=== PATIENT | female | born 1955 | race Caucasian/White ===

== ENCOUNTER → 2017-05-03 | Outpatient (CLI) | payer BC ==
[2017-05-03 12:27] LABS: HEMATOCRIT 42.5 % (37-47); HEMOGLOBIN 14.1 g/dL (12.0-16.0); MEAN CELL VOLUME 91.6 fL (80-100); MEAN CORPUSCULAR HEMOGLOBIN 30.4 pg (25-34); MEAN CORPUSCULAR HGB CONC 33.2 g/dl (32-36); MEAN PLATELET VOLUME 10.8 fL (7.4-10.4); PLATELET COUNT 158 K/uL (130-400); RED CELL DISTRIBUTION WIDTH CV 13.2 % (11.5-14.5); WHITE BLOOD COUNT 5.61 K/uL (4.8-10.8)
[2017-05-03 13:09] LABS: ALBUMIN 3.8 gm/dl (3.4-5.0); ALKALINE PHOSPHATASE 104 U/L (45-117); ALT/SGPT 21 U/L (12-78); AST/SGOT 15 U/L (15-37); BLOOD UREA NITROGEN 11 mg/dl (7-18); CALCIUM 9.2 mg/dl (8.5-10.1); CARBON DIOXIDE 27 mmol/L (21-32); CHOLESTEROL 184 mg/dl (0-200); GLUCOSE 97 mg/dl (70-99); LDL CHOLESTEROL CALCULATED 90 mg/dl; POTASSIUM 3.9 mmol/L (3.5-5.1); SODIUM 137 mmol/L (136-145); TOTAL PROTEIN 7.9 gm/dl (6.4-8.2)
[2017-05-03 13:46] LABS: BASO % 0.5 %; BASO ABS # 0.03 K/uL (0-0.2); EOS ABS # 0.11 K/uL (0-0.5); LYMPH ABS # 3.48 K/uL (1.2-3.4); MONO ABS # 0.45 K/uL (0.11-0.59); NEUT % 27.5 %; NEUT ABS # 1.54 K/uL (1.4-6.5)
== END | disposition home or self-care (01) ==
LOC: C.LABBFT 09:20
PROVIDERS: ATTEND Internal Medicine
DX: E78.5 Hyperlipidemia, unspecified (principal)

== ENCOUNTER → 2017-06-12 | Outpatient (CLI) | payer OTHER | END | disposition home or self-care (01) | LOC: C.PAPS 13:06 | PROVIDERS: ATTEND Obstetrics & Gynecology | DX: Z01.419 Encounter for gynecological examination (general) (routine) without abnormal findings (principal) ==

== ENCOUNTER → 2017-08-10 | Outpatient (CLI) | payer OTHER ==
--- NOTE | 2017-08-11 07:22 | MAMMOGRAPHY REPORT ---
BILATERAL DIGITAL SCREENING MAMMOGRAM TOMOSYNTHESIS WITH CAD: 08/10/2017 CLINICAL HISTORY: Routine screening. Patient has no complaints. TECHNIQUE: Breast tomosynthesis in addition to standard 2D mammography was performed. Current study was also evaluated with a Computer Aided Detection (CAD) system. COMPARISON: Comparison is made to exams dated: 03/31/2016 mammogram, 08/05/2014 mammogram, 03/14/2013 mammogram, and 03/08/2012 [facility]. BREAST COMPOSITION: There are scattered areas of fibroglandular density in both breasts. FINDINGS: No suspicious masses, calcifications, or areas of architectural distortion are noted in ei ther breast. There has been no significant interval change compared to prior exams. Benign-appearing lobulated 9 mm mass within the left upper outer quadrant is stable compared to multiple prior exams including the 2012 exam. Scattered benign-appearing right breast calcifications are stable. IMPRESSION: ACR BI-RADS CATEGORY 2: BENIGN There is no mammographic evidence of malignancy. A 1 year screening mammogram is recommended. The pa tient will receive written notification of the results. Approximately 10% of breast cancers are not detected with mammography. A negative mammographic report should not delay biopsy if a clinically suggestive mass is present. Davida Goodman M.D. ah/:08/10/2017 12:21:10 [employer] Testing: Kalie RIVERA)(Stephan)(BD), [facility] letter sent: Normal 1/2 BI-RADS Code: ACR BI-RADS Category 2: Benign
== END | disposition home or self-care (01) ==
LOC: C.MAMM 10:33
PROVIDERS: ATTEND Obstetrics & Gynecology
DX: Z12.31 Encounter for screening mammogram for malignant neoplasm of breast (principal)

== ENCOUNTER 2023-05-31 18:05 | Observation (INO) ==
--- NOTE | 2023-05-31 18:25 | ED Triage Note ---
Date of Service May 31, 2023 Provider in Triage Author: Josue Deleon History of Present Illness This patient was briefly evaluated while in triage. An abbreviated physical exam was performed. This patient is a 67-year-old Female who presents to the ED for evaluation of chest pain that started last week for a short period of time and then returned today. Pain in the center. Radiates down L arm and into L neck. No dyspnea.No hx of mi. Physical Exam GENERAL: 67 year old female. In no acute distress. SKIN: No lesions or rashes. HEART: Regular rate and rhythm. LUNGS: Clear to auscultation. NEURO: Alert and oriented. No deficits. MUSCULOSKELETAL: No deformities to inspection of the extremities. PSYCH: Patient is pleasant and answers all questions appropriately. Initial orders for labs and / or imaging were placed and patient was placed in the waiting area until a bed is available. Please see further documentation for the full ED course.
--- NOTE | 2023-05-31 19:17 | XRay Report ---
SINGLE VIEW CHEST CLINICAL HISTORY: Atypical chest pain. FINDINGS: A PA chest radiograph is obtained. No prior studies are available for comparison at the sandra e of dictation. The cardiomediastinal silhouette is unremarkable. Linear atelectasis is seen in the l eft lower lung. The lungs and pleural spaces are otherwise clear. No pneumothorax is seen. The skelet al structures are osteopenic. The bony thorax is grossly intact. IMPRESSION: No active disease in the chest. ACT 112: Negative or not required by law. Electronically signed by: Ron Hussein M.D. 05/31/2023 7:16 PM
[2023-05-31 19:23] LABS: Basophils # (auto) 0.05 K/uL (0.00-0.20); Eosinophils # (auto) 0.07 K/uL (0.00-0.50); Eosinophils % (auto) 1.3 %; Hematocrit (blood only) 40.4 % (37.0-47.0); Hemoglobin 13.4 g/dl (12.0-16.0); Immature Granulocytes # (auto) 0.01 K/uL (0.01-0.20); Immature Granulocytes % (auto) 0.2 %; Lymphocytes # (auto) 2.35 K/uL (1.20-3.40); Lymphocytes % (auto) 44.8 %; Mean Corpuscular Hemoglobin 29.3 pg (25.0-34.0); Mean Corpuscular Hgb Conc 33.2 g/dL (32.0-36.0); Mean Corpuscular Volume 88.4 fL (80.0-100.0); Mean Platelet Volume 10.8 fL (9.4-12.4); Monocytes # (auto) 0.45 K/uL (0.11-0.59); Monocytes % (auto) 8.6 %; Neutrophils # (auto) 2.32 K/uL (1.40-6.50); Neutrophils % (auto) 44.1 %; Platelet Count 153 K/uL (130-400); RDW Coefficient of Variation 12.9 % (11.5-14.5); RDW Standard Deviation 41.7 fL (36.4-46.3); Red Blood Count 4.57 M/uL (4.20-5.40); White Blood Count 5.25 K/ul (4.8-10.8)
[2023-05-31 19:38] LABS: Albumin Globulin Ratio 1.4 (0.9-2); Albumin Level 4.5 gm/dl (3.4-5.0); Bilirubin,Total 0.5 mg/dl (0.2-1.0); Calcium 10.2 mg/dl (8.6-10.3); Creatinine Clr Calc Pharmacy 68.8 ml/min; Est GFR (African American) 88.4 ml/min; Est GFR (Non-African American) 76.3 ml/min; Globulin 3.3 gm/dl (2.5-4.0); Potassium 3.7 mmol/L (3.5-5.1); Total Protein 7.8 gm/dl (6.0-8.3)
[2023-05-31 19:45] LABS: Troponin I High Sensitivity 3.8 pg/ml (0-14)
[2023-05-31 19:47] LABS: Partial Thromboplastin Ratio 0.8; Partial Thromboplastin Time 23 Seconds (21-31); Prothrombin Time 10.8 Seconds (9.0-12.0)
[2023-05-31 19:54] LABS: Thyroid Stimulating Hormone 2.982 uIu/ml (0.300-4.500)
[2023-05-31] MEDS ORDERED: ASPIRIN CHEW 324 MG PO STA (20:43)
--- NOTE | 2023-05-31 20:47 | Emergency Department Note ---
History of Present Illness General Chief complaint: Cardiac Assessment Stated complaint: CHEST PAIN, LT ARM PAIN, HEADACHE Time Seen by Provider: 05/31/23 20:32 History of Present Illness Maximum Pain Intensity: 4 67-year-old female presents emergency department with a 1 week history of intermittent substernal chest heaviness that radiates to her jaw neck and down her left arm with associated mild nausea and some shortness of breath. Patient states that she has been using Tums and Prilosec. Patient states approximately 6 years ago she had a thallium stress test which was negative and was told that she might have esophagitis. Patient denies any abdominal pain patient states currently intermittent chest heaviness that started earlier today while she was at [employer] volunteering. Patient states has been persistent. Patient did not take any aspirin prior to arrival. There are no other current mitigating or alleviating factors Home Medications Medication Instructions Recorded Confirmed Type multivitamin 1 tab PO DAILY 04/04/19 05/18/23 History cholecalciferol (vitamin D3) PO 09/17/20 05/18/23 History vitamin B complex PO 12/14/20 05/18/23 History conjugated estrogens 0.625 mg/gram 1 applic vaginal .COMPLEX #30 grams 12/08/22 05/18/23 Rx vaginal cream (Premarin) rosuvastatin 5 mg tablet 5 mg PO DAILY 90 days #90 tabs 03/23/23 05/18/23 Rx lqqpjkesk-thxO-jrbnzgm-FOS-bromelain ml PO 05/18/23 05/18/23 History 1,937 mg-188 mg/15 mL oral liquid Allergies Allergy/AdvReac Type Severity Reaction Status Date / Time No Known Drug Allergies Allergy Verified 05/18/23 12:23 Past Med/Surg History Medical History Mitral regurgitation Interstitial cystitis Cystocele Heel spur Iliac crest spur, unspecified hip Nephrolithiasis Hx of migraines Abnormal Pap smear of cervix Zoster Surgical History History of colonoscopy (12/24/19) Dr. Rigoberto Kramer, normal colonoscopy, recheck 10 years H/O colonoscopy 02/04/[address] Antwan Jimenez S/P cholecystectomy S/P appendectomy Family History Father Alzheimer disease Kidney disease Cancer Prostate cancer Mother Coronary heart disease s/p CABG Cardiac disorder Diabetes Gallbladder disease Denies family history of Ovarian cancer Heart disease Myocardial infarction Breast cancer Colorectal cancer Social History Smoking Status: Never smoker Second Hand Exposure: No; Do You Dip or Chew Tobacco: No; Hx Alcohol Use: Yes Alcohol Intake Frequency: Monthly or Less Hx Substance Use: No Preferred Language: Nicaraguan Communication Ability: Effective Visual Impairment: Limited Hearing Ability: Normal Obstetrics Nurse Practitioner Required: No marital status: Current Living Situation: Spouse current occupational status: retired Feels Safe at Home: Yes Childhood Exposure to Second-Hand Smoke: No Diet: regular caffeine: Yes during the past year weight has: remained stable Dental Care, Regularly: Yes Physical Activity Frequency: 5-6 Times per Week Seatbelt Use: always Sunscreen Use: Yes Assistive Devices: Glasses Review of Systems A total of 10 systems reviewed and were otherwise negative Cardiovascular: + chest pain Physical Exam Vital Signs Vital Signs - 24 hr 05/31/23 18:23 05/31/23 20:15 Temperature 36.8 C Temperature Source Temporal Artery Scan Pulse Rate 90 Pulse Rate [Left Finger] 70 Respiratory Rate 20 17 Respiratory Effort / Characteristics Non-Labored Spontaneous Respiratory Depth Normal Blood Pressure 191/120 H Blood Pressure [Left Arm] 159/94 H Blood Pressure Mean 143 Blood Pressure Mean [Left Arm] 115 Pulse Oximetry 96 97 Oxygen Delivery Method Room Air Room Air Sepsis Recent Fever Within 48 Hours No Sepsis New/Unexplained Change in Mental Status N/A Sepsis Action Taken by Nursing No Action Required GENERAL: Patient is awake alert in no acute distress patient is resting comfortably and showing no signs of anxiety EYES: The conjunctivae are clear. The pupils are round and reactive. EARS, NOSE, MOUTH AND THROAT: The nose is without any evidence of any deformity. Mucous membranes are moist. Tongue is midline. NECK: The neck is nontender and supple. RESPIRATORY: Normal respiratory effort is noted there is no evidence of wheezing rhonchi or rales CARDIOVASCULAR: Regular rate and rhythm noted there no murmurs rubs or gallops normal S1 normal S2. GASTROINTESTINAL: The abdomen is soft. Abdomen is nontender. BACK: No midline tenderness or or step-off noted range of motion in flexion extension as well as rotation no signs of muscle spasm noted MUSCULOSKELETAL/EXTREMITIES: There is no evidence of gross deformity full range of motion is noted in the hips and shoulders. SKIN: There is no obvious evidence of any rash. There are no petechiae, pallor or cyanosis noted. NEUROLOGIC: Patient is awake alert and oriented x3 strength is symmetric Course Reevaluation(s) Reevaluation #1: Patient was started on aspirin prior to admission. No current significant chest pain or heaviness Time: 20:58 Consultations Consultation #1: This [facility] pain and possible unstable angina Time: 20:58 Administered Medications Aspirin (Aspirin Chew 324 Mg) 324 mg PO NOW STA Stop: 05/31/23 20:44 Last Admin: 05/31/23 20:50 Dose: 324 mg Documented By: ROMAN Medical Decision Making Medical Records Attestation: I reviewed the patient's medical records. Home Medications Current Medication List: was personally reviewed by me Laboratory Data Attestation: I reviewed the patient's lab results. Labs interpreted by me unremarkable 05/31/23 18:43 05/31/23 18:43 Lab Results 05/31/23 Range/Units 18:43 WBC 5.25 (4.8-10.8) K/ul RBC 4.57 (4.20-5.40) M/uL Hgb 13.4 (12.0-16.0) g/dl Hct 40.4 (37.0-47.0) % MCV 88.4 (80.0-100.0) fL MCH 29.3 (25.0-34.0) pg MCHC 33.2 (32.0-36.0) g/dL RDW Std Deviation 41.7 (36.4-46.3) fL RDW Coeff of Leonardo 12.9 (11.5-14.5) % Plt Count 153 (130-400) K/uL MPV 10.8 (9.4-12.4) fL Immature Gran % (Auto) 0.2 % Neut % (Auto) 44.1 % Lymph % (Auto) 44.8 % Lincoln % (Auto) 8.6 % Eos % (Auto) 1.3 % Baso % (Auto) 1.0 % Neut # (Auto) 2.32 (1.40-6.50) K/uL Lymph # (Auto) 2.35 (1.20-3.40) K/uL Lincoln # (Auto) 0.45 (0.11-0.59) K/uL Eos # (Auto) 0.07 (0.00-0.50) K/uL Baso # (Auto) 0.05 (0.00-0.20) K/uL Immature Gran # (Auto) 0.01 (0.01-0.20) K/uL PT 10.8 (9.0-12.0) Seconds INR 1.0 (0.9-1.1) APTT 23 (21-31) Seconds PTT Ratio 0.8 Sodium 140 (136-145) mmol/L Potassium 3.7 (3.5-5.1) mmol/L Chloride 105 (98-107) mmol/L Carbon Dioxide 27 (21-32) mmol/L Anion Gap 8 (3-11) BUN 12 (6-23) mg/dl Creatinine 0.80 (0.6-1.2) mg/dl Est Cr Clr Drug Dosing 68.8 ml/min Est GFR ( Amer) 88.4 ml/min Est GFR (Non-Af Amer) 76.3 ml/min BUN/Creatinine Ratio 15.0 (10-20) Glucose 94 (70-99(Fasting)) mg/dl Calcium 10.2 (8.6-10.3) mg/dl Magnesium 2.0 (1.7-2.4) mg/dl Total Bilirubin 0.5 (0.2-1.0) mg/dl AST 18 (13-39) U/L ALT 12 (7-52) U/L Alkaline Phosphatase 92 (34-104) U/L Troponin I High Sens 3.8 (0-14) pg/ml Total Protein 7.8 (6.0-8.3) gm/dl Albumin 4.5 (3.4-5.0) gm/dl Globulin 3.3 (2.5-4.0) gm/dl Albumin/Globulin Ratio 1.4 (0.9-2) Lipase 29 (11-82) U/L TSH 2.982 (0.300-4.500) uIu/ml Imaging Data Attestation: I personally reviewed and interpreted this imaging study as follows: My Impression: Chest x-ray interpreted by me negative for infiltrate Radiologist's Impression: Chest X-Ray 05/31/23 18:25 SINGLE VIEW CHEST CLINICAL HISTORY: Atypical chest pain. FINDINGS: A PA chest radiograph is obtained. No prior studies are available for comparison at the time of dictation. The cardiomediastinal silhouette is unremarkable. Linear atelectasis is seen in the left lower lung. The lungs and pleural spaces are otherwise clear. No pneumothorax is seen. The skeletal structures are osteopenic. The bony thorax is grossly intact. IMPRESSION: No active disease in the chest. ACT 112: Negative or not required by law. Electronically signed by: Ron Hussein M.D. 05/31/2023 7:16 PM ECG Data Attestation: I personally reviewed and interpreted this ECG as follows: MDM Narrative Medical decision making differential diagnosis includes angina, unstable angina, acute coronary syndrome, esophageal spasm, esophagitis, musculoskeletal chest pain, cardiac dysrhythmia Plan is to check labs, EKG, chest x-ray Patient was given aspirin in the emergency department Patient's heart score is a 4 Plan is to admit the patient for further evaluation I am concerned that the patient has unstable angina Impression & Plan Chest pain, Unstable angina Discharge Plan Visit Data Chief Complaint: Cardiac Assessment Stated Complaint: CHEST PAIN, LT ARM PAIN, HEADACHE ED Provider: Wagner Hamm Discharge Problem: Chest pain, Unstable angina Patient Disposition: Admitted As Inpatient Forms Stand Alone Forms: My [facility] Prescriptions Prescriptions: No Action Premarin 0.625 mg/gram cream 1 applic PV .COMPLEX Qty: 30 2RF Rx Instructions: 1 applic vaginal pea sized amount to vaginal opening mondays and fridays; rosuvastatin 5 mg tablet 5 mg PO DAILY 90 Days Qty: 90 3RF multivitamin tablet 1 tab PO DAILY ryha-riuY-necyfto-FOS-bromeln 1,937-188 mg/15 mL liquid PO vitamin B complex PO cholecalciferol (vitamin D3) PO Referrals Referrals: Anselmo Barr DO [Primary Care Provider] -
[2023-05-31] MEDS ORDERED: NITROGLYCERIN 2% OINTMENT 30GM TUBE EXT STA (21:36)
--- NOTE | 2023-05-31 21:37 | History & Physical Report ---
Date of Service May 31, 2023 Assessment & Plan (1) Chest pain: Plan: 67yo Female with PMH HLD here for concern chest tightness. Chest Pain -ongoing since 1pm 05/31 -received aspirin 324mg in ED -Trop wnl, repeat wnl -EKG NSR with PVCs -CXR wnl -no pain on palpation -admit to med/tele -ordered echo patient may need stress echo -Well's score 0, low suspicion PE Elevated BP -on admission 191/120, recheck 159/112 -ordered 0.5in nitropaste with mild improvement of chest tightness, BP 112/87 HLD -continue rosuvastatin FENa: heart healthy Code Status: full DVT PPX: ambulatory Dispo: med/tele Angelica Fine D.O. PGY 3, FCM (2) Hyperlipidemia: History of Present Illness Chief Complaint: Chest pain Primary Care Provider: Anselmo Barr, 67yo Female with PMH HLD here for concern chest tightness. Patient states last week on 1 day she felt chest tightness, thought it was indigestion, it resolved without intervention. Last night had similar chest tightness, she went to bed was resolved by morning. Today at hinduism 1pm she developed chest tightness, continued to persist and worsen, she tried tums prilosec didn't help, by 5pm decided to come to hospital. In hospital received ASA 324mg without change in symptoms, noted elevated BP 191/120 normal troponin normal CXR relatively normal EKG. Patient states the chest tightness is in the center of her chest, radiates up left side of neck with lip numbness, back of neck, left arm. She denies associated SOB nausea. Denies leg swelling. Occasional dizziness. States it may be worse laying down, no change leaning forward, no change on palpation or deep breathing. Patient denies relevant FH mom had triple bypass in 70's dad had alzheimer's. Patient denies history HTN. Denies use of tobacco drugs, rare alcohol. Distant history of arrhythmia 1988 during epidural was placed on 24hr holter monitor was negative. Had similar chest discomfort 6 years ago with history of drinking lemon water Dr. Sandhu, thallium stress echo normal was later diagnosed with severe esophagitis has since avoided citrus coffee and soda. Patient routinely walks her dog has not noticed chest discomfort with activity over past week. Distant history URI in february none recently. Allergies Allergy/AdvReac Type Severity Reaction Status Date / Time No Known Drug Allergies Allergy 0 Verified 05/31/23 21:59 Home Medications Medication Instructions Recorded Confirmed Type cholecalciferol (vitamin D3) 25 0 mcg PO DAILY 05/31/23 05/31/23 History mcg (1,000 unit) tablet (Vitamin D3) conjugated estrogens 0.625 mg/gram 1 applic vaginal WK 05/31/23 05/31/23 History vaginal cream (Premarin) xxiyupdtn-ycrG-mlrmmag-FOS-bromelain 15 ml PO DAILY 05/31/23 05/31/23 History 1,937 mg-188 mg/15 mL oral liquid multivitamin 1 tab PO DAILY 05/31/23 05/31/23 History rosuvastatin 5 mg tablet 5 mg PO QPM 05/31/23 05/31/23 History Past Med/Surg History Medical History Mitral regurgitation Interstitial cystitis Cystocele Heel spur Iliac crest spur, unspecified hip Nephrolithiasis Hx of migraines Abnormal Pap smear of cervix Zoster Surgical History History of colonoscopy (12/24/19) Dr. Rigoberto Kramer, normal colonoscopy, recheck 10 years H/O colonoscopy 02/04/[address] Antwan Jimenez S/P cholecystectomy S/P appendectomy Family History Father Alzheimer disease Kidney disease Cancer Prostate cancer Mother Coronary heart disease s/p CABG Cardiac disorder Diabetes Gallbladder disease Denies family history of Ovarian cancer Heart disease Myocardial infarction Breast cancer Colorectal cancer Social History Smoking Status: Never smoker Second Hand Exposure: No; Do You Dip or Chew Tobacco: No; Hx Alcohol Use: Yes Alcohol type: other Alcohol Intake Frequency: Monthly or Less Hx Substance Use: No Preferred Language: Dutch Communication Ability: Effective Visual Impairment: Limited Hearing Ability: Normal Magazine Hand Required: No Beliefs That Will Affect Care: None marital status: Current Living Situation: Spouse Current Living Situation Comment: With , Peterson and dog, Claudette current occupational status: retired Other Information That Helps Us Care for You: No Feels Safe at Home: Yes Safety Concerns: Feels Safe At This Time Childhood Exposure to Second-Hand Smoke: No Diet: regular caffeine: Yes during the past year weight has: remained stable Dental Care, Regularly: Yes Physical Activity Frequency: 5-6 Times per Week Seatbelt Use: always Sunscreen Use: Yes Assistive Devices: Glasses and Raised Toilet Seat Physical Exam Constitutional: well developed and well nourished Eyes: PERRL, conjunctivae normal, anicteric sclerae ENMT: external ear and nose normal, oropharynx normal Neck: trachea midline, no thyromegaly Respiratory: normal respiratory effort, lungs clear to auscultation Cardiovascular: RRR, no murmur, no edema Gastrointestinal (Abdomen): Inspection/Auscultation: abdomen normal to inspection; abdomen not distended Percussion/Palpation: abdomen soft Skin: no rashes, warm and dry Results & Data Results & Data Vital Signs (Past 12 Hours) Vital Signs Temp Pulse Pulse Resp BP BP Pulse Ox 05/31/23 20:15 70 17 159/94 H 97 05/31/23 18:23 36.8 C 90 20 191/120 H 96 O2 Del Method 05/31/23 20:15 Room Air 05/31/23 18:23 Room Air Supervising Physician Co-Signing Physician Notes Patient seen and examined, chart reviewed, case discussed with Dr. Fine and I agree with the assessment and plan as above. Patient with ongoing chest discomfort, radiation into the arm and jaw. Had similar episode 6-7 years ago and had a thallium stress test which was unremarkable - was told that she had esophagitis. Otherwise no known history of cardiac disease. No exertional symptoms. On exam she is afebrile. Hypertensive in the ER on arrival HEENT - neck supple, MMM Heart - +S1/S2, regualr, no m/r/g Lungs - CTA, no rales/rhonchi/wheezes Abd - +BS, soft, NT/ND, no epigastric pain Ext - warm, well perfused Labs and images reviewed - troponin x 2 unremarkable Doubt cardiac chest pain rather suspect GI -Trend troponin -Telemetry monitoring -Check 2D echo in AM -Pepcid 20mg po BID -Maalox PRN -Remainder as above Resident Activity Tracking Resident Involvement: Resident Care Provided Care Provided: Adult Hospital Medicine
[2023-05-31] MEDS ORDERED: FAMOTIDINE 20MG IV PUSH 20 MG/5 ML SYR IV STA (22:48)
[2023-05-31] MEDS ORDERED: ALUMINUM/MAGNESIUM SUSP 30 ML UDC PO STA (22:48)
[2023-06-01] MEDS ORDERED: POLYETHYLENE (MIRALAX) 17 GM PACK PO PRN (00:14)
[2023-06-01] MEDS ORDERED: ALUMINUM/MAGNESIUM SUSP 30 ML UDC PO PRN (00:14)
--- NOTE | 2023-06-01 03:16 | Billing Data ---
Date of Service May 31, 2023 Coding Level of Care Code 16734 INT INP/OBS CARE
[2023-06-01] MEDS: ACETAMINOPHEN 325 MG TAB PO PRN ×3 (05:31→14:53)
--- NOTE | 2023-06-01 07:44 | Hospitalist Progress Note ---
Date of Service June 01, 2023 Assessment & Plan (1) Chest pain: Plan: 67yo Female with PMH HLD here for concern chest tightness,initial ecg without acute changes -received aspirin 324mg in ED -Trop wnl, repeat wnl -CXR wnl admitting team notes no reproducible pain risk factor of hyperlipicdemia on rosuvastatin -ordered echo patient may need stress echo -Well's score 0, low suspicion PE Elevated BP, maybe hypertensive urgency -on admission 191/120, recheck 159/112 -ordered 0.5in nitropaste with improved blood pressure Code Status: full Admission and Anticipated Discharge Date Admission Date: May 31, 2023 Results & Data Results & Data Vital Signs (Past 12 Hours) Vital Signs Temp Pulse Pulse Resp BP BP Pulse Ox 06/01/23 07:34 06/01/23 03:16 63 06/01/23 02:47 06/01/23 02:43 97.7 F 79 18 115/74 96 06/01/23 02:25 61 16 114/67 98 06/01/23 00:14 64 18 122/75 98 06/01/23 00:14 06/01/23 00:00 68 16 94 05/31/23 23:00 05/31/23 22:51 68 15 154/79 H 99 05/31/23 20:15 70 17 159/94 H 97 Pulse Ox O2 Del Method O2 Del Method 06/01/23 07:34 Room Air 06/01/23 03:16 06/01/23 02:47 Room Air 06/01/23 02:43 Room Air 06/01/23 02:25 Room Air 06/01/23 00:14 Room Air 06/01/23 00:14 98 Room Air 06/01/23 00:00 Room Air 05/31/23 23:00 Room Air 05/31/23 22:51 05/31/23 20:15 Room Air PG Care Time/CCT Total # of Minutes Spent Total Time Spent with Patient: Total time spent is greater than 50% in coordination of care (as documented) at patient's floor/unit and/or counseling patient: Coding Diagnoses Chest pain R07.9
[2023-06-01 07:52] LABS: Hematocrit (blood only) 40.8 % (37.0-47.0); Mean Corpuscular Hgb Conc 31.9 g/dL (32.0-36.0); Mean Corpuscular Volume 91.1 fL (80.0-100.0); Mean Platelet Volume 10.6 fL (9.4-12.4); Platelet Count 115 K/uL (130-400); RDW Coefficient of Variation 12.9 % (11.5-14.5); RDW Standard Deviation 43.3 fL (36.4-46.3); Red Blood Count 4.48 M/uL (4.20-5.40); White Blood Count 3.82 K/ul (4.8-10.8)
[2023-06-01 08:13] LABS: BUN Creatinine Ratio 18.8 (10-20); Calcium 9.1 mg/dl (8.6-10.3); Creatinine Clr Calc Pharmacy 83.4 ml/min; Est GFR (African American) 104.4 ml/min; Est GFR (Non-African American) 90.1 ml/min; Potassium 3.9 mmol/L (3.5-5.1)
[2023-06-01 08:19] LABS: Troponin I High Sensitivity 4.2 pg/ml (0-14)
[2023-06-01 08:36] LABS: Appearance Urine Cloudy (Clear); Bacteria Urine Automated Negative (Negative); Bilirubin Urine Negative (Negative); Blood Urine Negative (Negative); Color Urine Yellow; Epithelial Cell Urine Auto 20-30 /lpf (0-5); Glucose Urine UA Negative (Negative); Ketones Urine Negative (Negative); Leukocyte Esterase Urine Negative (Negative); Nitrite Urine Negative (Negative); Protein Urine Negative (Negative); RBC Urine Automated 0-4 /hpf (0-4); Specific Gravity Urine 1.013 (1.000-1.030); Urobilinogen Urine Negative (Negative); WBC Urine Automated 0 /hpf (0-5); pH Urine 7.5 (4.5-7.5)
[2023-06-01] MEDS ORDERED: FAMOTIDINE 20 MG TAB PO SCH (09:00)
[2023-06-01] MEDS ORDERED: ROSUVASTATIN CALCIUM 5 MG TAB PO SCH (09:00)
--- NOTE | 2023-06-01 10:13 | XCELERA ---
[id number] \\[id number]
--- NOTE | 2023-06-01 11:44 | XCELERA ---
[id number] \\[email or web address]_[email or web address]\[id number]
[2023-06-01] MEDS ORDERED: SUCRALFATE 1 GM/10 ML UDC PO ONE (13:21)
[2023-06-01] MEDS ORDERED: OPTIRAY 320 125ml IV ONE (14:31)
--- NOTE | 2023-06-01 14:55 | CT Scan Report ---
CT angio chest PE protocol CT DOSE: 706.05 mGy.cm HISTORY: 67 years-old Female with PE. Acute shortness of breath TECHNIQUE: Multiple CTA images of the chest were obtained after the intravenous administration of 115 ml Optiray. Coronal and sagittal MIPS were obtained from the axial data set and were submitted for review. All measurements were obtained according to NASCET criteria. A dose lowering technique was u tilized adhering to the principles of ALARA. COMPARISON: Chest radiograph 05/31/2023. FINDINGS: CTA: Heart is upper limits of normal in size. No pericardial effusion. Kqon-tu-mspiyhxm coronary artery ca lcifications. No thoracic aortic aneurysm or dissection. Patency of the image great vessels. No pulmo nary emboli identified, however the segmental and subsegmental branches are not well visualized secon charlene to contrast bolus timing. CT CHEST: Unremarkable thyroid. No lymphadenopathy. No pneumothorax, pleural effusion, or overt pulmonary edema . Mild subsegmental bibasilar atelectasis. 4 mm solid nodule in the right lower lobe on image 84. Evans tral airways are patent. No acute upper abdominal abnormality. Unremarkable soft tissues. No acute fracture. IMPRESSION: 1. Unremarkable CTA. No pulmonary emboli. 2. No pleural effusion or airspace consolidation to suggest pneumonia. 3. Subsegmental bibasilar atelectasis. 4. Low suspicion 4 mm solid nodule within the right lower lobe. In a low risk patient, no follow-up i s needed. Please refer to below summary of Fleischner criteria recommendations for follow-up of incidental CT n odules (Marlo Vergara, Guidelines for management of small pulmonary nodules detected on CT scans: A sta tement from the Fleischner Society, Radiology 237: [phone].) SOLID NODULES Solitary nodule size: <6 mm * Low risk patients: no follow-up needed * high risk patients: optional CT at 12 months Note: newly detected indeterminate nodule in persons 35 years of age or older. * Low risk patients: minimal or absent history of smoking and/or other known risk factors * high risk patients: history of smoking or of other known risk factors (e.g. first degree relative with lung cancer, or exposure to asbestos, radon, uranium) * if a nodule up to 8 mm is partly solid or is ground glass further follow-up is required after 24 m onths to exclude possible slow growing adenocarcinoma (DANIELLE) The above report was generated using voice recognition software. It may contain grammatical, syntax o r spelling errors. ACT 112: Negative or not required by law. The above report was generated using voice recognition software. It may contain grammatical, syntax o r spelling errors. Electronically signed by: Baltazar Turner M.D. 06/01/2023 2:54 PM
--- NOTE | 2023-06-01 15:51 | Discharge Summary ---
Date of Service June 01, 2023 Admission HPI Per Admitting Provider 67yo Female with PMH HLD here for concern chest tightness. Patient states last week on 1 day she felt chest tightness, thought it was indigestion, it resolved without intervention. Last night had similar chest tightness, she went to bed was resolved by morning. Today at [facility] 1pm she developed chest tightness, continued to persist and worsen, she tried tums prilosec didn't help, by 5pm decided to come to hospital. In hospital received ASA 324mg without change in symptoms, noted elevated BP 191/120 normal troponin normal CXR relatively normal EKG. Patient states the chest tightness is in the center of her chest, radiates up left side of neck with lip numbness, back of neck, left arm. She denies associated SOB nausea. Denies leg swelling. Occasional dizziness. States it may be worse laying down, no change leaning forward, no change on palpation or deep breathing. Patient denies relevant FH mom had triple bypass in 70's dad had alzheimer's. Patient denies history HTN. Denies use of tobacco drugs, rare alcohol. Distant history of arrhythmia 1988 during epidural was placed on 24hr holter monitor was negative. Had similar chest discomfort 6 years ago with history of drinking lemon water Dr. Sandhu, thallium stress echo normal was later diagnosed with severe esophagitis has since avoided citrus coffee and soda. Patient routinely walks her dog has not noticed chest discomfort with activity over past week. Distant history URI in february none recently. Principal Diagnosis Noncardiac chest pain Discharge Exam Patient's chest pain is not reproducible Cardiac exam is regular I cannot hear her mitral valve prolapse or mitral regurgitation murmur Lungs are clear without wheezes or crackles Abdomen is without epigastric tenderness Discharge Data Allergies Allergy/AdvReac Type Severity Reaction Status Date / Time No Known Drug Allergies Allergy 0 Verified 05/31/23 21:59 Consultations 05/31/23 20:47 ED Decision to Admit Stat Ordered Studies Chest X-Ray 05/31/23 18:25 SINGLE VIEW CHEST CLINICAL HISTORY: Atypical chest pain. FINDINGS: A PA chest radiograph is obtained. No prior studies are available for comparison at the time of dictation. The cardiomediastinal silhouette is unremarkable. Linear atelectasis is seen in the left lower lung. The lungs and pleural spaces are otherwise clear. No pneumothorax is seen. The skeletal structures are osteopenic. The bony thorax is grossly intact. IMPRESSION: No active disease in the chest. Electronically signed by: Ron Hussein M.D. 05/31/2023 7:16 PM Chest CTA 06/01/23 13:20 CT angio chest PE protocol CT DOSE: 706.05 mGy.cm HISTORY: 67 years-old Female with PE. Acute shortness of breath TECHNIQUE: Multiple CTA images of the chest were obtained after the intravenous administration of 115 ml Optiray. Coronal and sagittal MIPS were obtained from the axial data set and were submitted for review. All measurements were obtained according to NASCET criteria. A dose lowering technique was utilized adhering to the principles of ALARA. COMPARISON: Chest radiograph 05/31/2023. FINDINGS: CTA: Heart is upper limits of normal in size. No pericardial effusion. [id number] coronary artery calcifications. No thoracic aortic aneurysm or dissection. Patency of the image great vessels. No pulmonary emboli identified, however the segmental and subsegmental branches are not well visualized secondary to contrast bolus timing. CT CHEST: Unremarkable thyroid. No lymphadenopathy. No pneumothorax, pleural effusion, or overt pulmonary edema. Mild subsegmental bibasilar atelectasis. 4 mm solid nodule in the right lower lobe on image 84. Central airways are patent. No acute upper abdominal abnormality. Unremarkable soft tissues. No acute fracture. IMPRESSION: 1. Unremarkable CTA. No pulmonary emboli. 2. No pleural effusion or airspace consolidation to suggest pneumonia. 3. Subsegmental bibasilar atelectasis. 4. Low suspicion 4 mm solid nodule within the right lower lobe. In a low risk patient, no follow-up is needed. Please refer to below summary of Fleischner criteria recommendations for follow- up of incidental CT nodules (Marlo Vergara, Guidelines for management of small pulmonary nodules detected on CT scans: A statement from the Fleischner Society, Radiology 237: [phone].) SOLID NODULES Solitary nodule size: <6 mm * Low risk patients: no follow-up needed * high risk patients: optional CT at 12 months Note: newly detected indeterminate nodule in persons 35 years of age or older. * Low risk patients: minimal or absent history of smoking and/or other known risk factors * high risk patients: history of smoking or of other known risk factors (e.g. first degree relative with lung cancer, or exposure to asbestos, radon, uranium) * if a nodule up to 8 mm is partly solid or is ground glass further follow-up is required after 24 months to exclude possible slow growing adenocarcinoma (DANIELLE) Electronically signed by: Baltazar Turner M.D. 06/01/2023 2:54 PM Total Time Total Time Spent Total Time Spent (In Minutes): it took greater than 30 minutes to complete this process Discharge Plan Discharge Items Patient Disposition: Home - Self-Care Reason For Visit: CHEST PAIN Discharge Diagnosis: atypical chest pain Activity: Resume your previous activity Non-emergency contact: Primary Care Provider Call non-emergency contact if: your symptoms worsen Follow-up/Referrals: Anselmo Barr, [Primary Care Provider] - 06/08/23 2:00 pm Diet: Heart Healthy Addtl Attending Provider Instructions: you did have a normal stress test and a normal CT of chest for diagnosis that may have been associated with your chest pain please start twice a day protonix and avoid medications in the anti inflammatory group such as aleve, ibuprofen, Motrin, naproxen follow up with Dr Barr for further discussion and please always return if worse Pending Studies at Discharge: No Stand-Alone Forms: My [facility] [email or web address], Smoking Cessation Medications and DC Order Prescriptions: New pantoprazole [Protonix] 40 mg tablet,delayed release (DR/EC) 40 mg PO BID Qty: 60 1RF Continued multivitamin Tablet 1 tab PO DAILY Premarin 0.625 mg/gram cream 1 applic vaginal WK rosuvastatin 5 mg tablet 5 mg PO QPM cholecalciferol (vitamin D3) [Vitamin D3] 25 mcg (1,000 unit) Tablet 0 mcg PO DAILY Discontinued Cystex Cranberry 1,937-188 mg/15 mL Liquid 15 ml PO DAILY Discharge Orders: Discharge Order (Routine); Ordered 06/01/23 Ordered By: Grey Christian Admission Data Admit Date/Time: 05/31/23 21:40 Attending Provider: Grey Christian Admit Provider: Angelica Fine Primary Care Provider: Anselmo Barr Other Providers: Jeannine Meneses Coding Level of Care Code 58877 INP/OBS DISCH >30 MIN
--- NOTE | 2023-06-01 16:11 | Discharge Summary ---
Date of Service June 01, 2023 Admission HPI Per Admitting Provider 67yo Female with PMH HLD here for concern chest tightness. Patient states last week on 1 day she felt chest tightness, thought it was indigestion, it resolved without intervention. Last night had similar chest tightness, she went to bed was resolved by morning. Today at [place] 1pm she developed chest tightness, continued to persist and worsen, she tried tums prilosec didn't help, by 5pm decided to come to hospital. In hospital received ASA 324mg without change in symptoms, noted elevated BP 191/120 normal troponin normal CXR relatively normal EKG. Patient states the chest tightness is in the center of her chest, radiates up left side of neck with lip numbness, back of neck, left arm. She denies associated SOB nausea. Denies leg swelling. Occasional dizziness. States it may be worse laying down, no change leaning forward, no change on palpation or deep breathing. Patient denies relevant FH mom had triple bypass in 70's dad had alzheimer's. Patient denies history HTN. Denies use of tobacco drugs, rare alcohol. Distant history of arrhythmia 1988 during epidural was placed on 24hr holter monitor was negative. Had similar chest discomfort 6 years ago with history of drinking lemon water Dr. Sandhu, thallium stress echo normal was later diagnosed with severe esophagitis has since avoided citrus coffee and soda. Patient routinely walks her dog has not noticed chest discomfort with activity over past week. Distant history URI in february none recently. Principal Diagnosis non cardiac chest pain Discharge Exam Patient's chest pain is not reproducible Cardiac exam is regular I cannot hear her mitral valve prolapse or mitral regurgitation murmur Lungs are clear without wheezes or crackles Abdomen is without epigastric tenderness Discharge Data Allergies Allergy/AdvReac Type Severity Reaction Status Date / Time No Known Drug Allergies Allergy 0 Verified 05/31/23 21:59 Consultations 05/31/23 20:47 ED Decision to Admit Stat Ordered Studies 06/01/23 13:20 CT angio chest PE protocol Routine Hospital Course (1) Chest pain: 67yo Female with PMH HLD here for concern chest tightness,initial ecg without acute changes pt had a normal resting echo and normal stress echo -Well's score 0, low suspicion PE, however to eval for Aortic issues CTA for PE was completed with no PE and no aortic issues, also no noted hiatal hernia it was disclosed of the small nodule that did not need follow up pt was informed to reduce or eliminate naiads, and will be started on Protonix bid follow up with primary care Code Status: full Total Time Total Time Spent Total Time Spent (In Minutes): It required greater than 30 minutes to prepare this patient for discharge. Discharge Plan Discharge Items Patient Disposition: Home - Self-Care Reason For Visit: CHEST PAIN Discharge Diagnosis: atypical chest pain Activity: Resume your previous activity Non-emergency contact: Primary Care Provider Call non-emergency contact if: your symptoms worsen Follow-up/Referrals: Anselmo Barr, [Primary Care Provider] - 06/08/23 2:00 pm Diet: Heart Healthy Addtl Attending Provider Instructions: you did have a normal stress test and a normal CT of chest for diagnosis that may have been associated with your chest pain please start twice a day protonix and avoid medications in the anti inflammatory group such as aleve, ibuprofen, Motrin, naproxen follow up with Dr Barr for further discussion and please always return if worse Pending Studies at Discharge: No Stand-Alone Forms: My [facility] [employer], Smoking Cessation Medications and DC Order Prescriptions: New pantoprazole [Protonix] 40 mg tablet,delayed release (DR/EC) 40 mg PO BID Qty: 60 1RF Continued multivitamin Tablet 1 tab PO DAILY Premarin 0.625 mg/gram cream 1 applic vaginal WK rosuvastatin 5 mg tablet 5 mg PO QPM cholecalciferol (vitamin D3) [Vitamin D3] 25 mcg (1,000 unit) Tablet 0 mcg PO DAILY Discontinued Cystex Cranberry 1,937-188 mg/15 mL Liquid 15 ml PO DAILY Discharge Orders: Discharge Order (Routine); Ordered 06/01/23 Ordered By: Grey Christian Admission Data Admit Date/Time: 05/31/23 21:40 Attending Provider: Grey Christian Admit Provider: Angelica Fine Primary Care Provider: Anselmo Barr Other Providers: Jeannine Meneses Other Interventions: Discharge Summary Assessment (RN) Last Done: 06/01/23 16:04 Coding Level of Care Code 40282 INP/OBS DISCH >30 MIN Diagnoses Chest pain R07.9
--- NOTE | 2023-06-02 22:24 | Electrocardiogram Report ---
Test Reason : Blood Pressure : / mmHG Vent. Rate : 086 BPM Atrial Rate : 086 BPM P-R Int : 114 ms QRS Dur : 088 ms QT Int : 368 ms P-R-T Axes : 030 -47 031 degrees QTc Int : 440 ms Sinus rhythm with Premature supraventricular complexes Left anterior fascicular block Minimal voltage criteria for LVH, may be normal variant ( R in aVL ) Abnormal ECG No previous ECGs available Confirmed by Regino Hunt ([id number]) on 06/02/2023 10:24:14 PM Referred By: REFERRED SELF Confirmed By:Regino Hunt
== END 2023-06-01 16:04 | disposition home or self-care (01) ==
LOC: ED 18:05 → SUATTDRO 21:40 → INTOOBSV 21:40 → EDINP 21:40 → 2N 06-01 02:47